=== PATIENT | female | born 1955 | race African-American/Black ===

== ENCOUNTER → 2018-02-15 | Outpatient (CLI) | payer OTHER ==
[2018-02-15 09:45] LABS: ADD MAN DIFF? NO
[2018-02-15 10:07] LABS: BASO % 1 % (0-3); EOS # 0.1 x10^3/uL (0.0-0.7); EOS % 1 % (0-3); HEMATOCRIT 42.6 % (36.0-47.0); HEMOGLOBIN 14.8 g/dL (12.0-15.5); LYMPH # 1.9 x10^3/uL (1.0-4.8); LYMPH % 40 % (24-48); MEAN CORPUSCULAR HEMOGLOBIN 33 pg (25-35); MEAN CORPUSCULAR HGB CONC 35 g/dL (31-37); MEAN CORPUSCULAR VOLUME 94 fL (79-100); MONO # 0.5 x10^3/uL (0.0-1.1); MONO % 10 % (0-9); NEUT # 2.3 x10^3uL (1.8-7.7); NEUT % 47 % (31-73); PLATELET COUNT 297 x10^3/uL (140-400); RED BLOOD COUNT 4.54 x10^6/uL (3.50-5.40); RED CELL DISTRIBUTION WIDTH 13.4 % (11.5-14.5); WHITE BLOOD COUNT 4.8 x10^3/uL (4.0-11.0)
[2018-02-15 10:24] LABS: CHOLESTEROL 238 mg/dL (0-200); CHOLESTEROL/HDL RATIO 1.8; HDLC 131 mg/dL (40-60); LDLC 89 mg/dL (0-100); NON-HDL CHOLESTEROL 107 mg/dL (0-129); TRIGLYCERIDES 89 mg/dL (0-150); VLDLC 18 mg/dL (0-40)
[2018-02-15 11:35] LABS: THYROID STIM HORMONE (TSH) 1.141 uIU/mL (0.358-3.74)
[2018-02-15 11:35] LABS: FREE T4 0.94 ng/dL (0.76-1.46)
[2018-02-16 02:19] LABS: HEMOGLOBIN A1C 5.4 % (4.8-5.6)
[2018-02-16 09:23] LABS: C3 COMPLEMENT 94 mg/dL (82-167)
[2018-02-16 09:23] LABS: C4 COMPLEMENT 25 mg/dL (14-44)
== END | disposition home or self-care (01) ==
LOC: LAB 09:36
DX: Z79.899 Other long term (current) drug therapy (principal)
CPT/HCPCS: 36415; 80061; 82306; 83036; 84439; 84443; 84481; 85025; 86160

== ENCOUNTER → 2019-02-04 | Outpatient (CLI) | payer OTHER ==
[2018-06-14 03:46] VITALS: BP 123/66
[~2019-02-04] MED LIST: DICL50TA4 PO
--- NOTE | 2019-02-04 12:21 | RAD ---
Cervical spine, 2 views, 02/04/2019: HISTORY: Anterior neck pain, previous surgery There has been a previous anterior spinal fusion from C4 through C7 with an anterior fixation plate and multiple screws in place. There are scattered posterior spurs at the fused disc levels. There is moderate disc space narrowing and marginal spurring at C3-4. There is moderate facet joint arthropathy at multiple levels bilaterally. No fracture or dislocation is evident. IMPRESSION: 1. Previous anterior spinal fusion and instrumentation from C4 through C7. 2. Moderate multilevel degenerative change. Electronically signed by: Roldan Birmingham MD (02/04/2019 12:18 PM) [facility]
== END | disposition home or self-care (01) ==
LOC: RAD 10:09
PROVIDERS: ATTEND Family Medicine
DX: M47.812 Spondylosis without myelopathy or radiculopathy, cervical region (principal); M48.02 Spinal stenosis, cervical region; M12.88 Other specific arthropathies, not elsewhere classified, other specified site
CPT/HCPCS: 72040